=== PATIENT | male | born 1985 | race Caucasian/White ===

== ENCOUNTER 2017-09-27 10:21 | Emergency (ER) | payer OTHER ==
[~2017-09-27] VITALS: Ht 172.7 cm; Wt 84.1 kg
[2017-09-27] MEDS ORDERED: IBUPROFEN 800 MG TABLET PO ONE (12:15)
[2017-09-27 12:32] VITALS: BP 147/78
== END 2017-09-27 12:38 | disposition home or self-care (01) ==
LOC: EMS 10:24 → EDBD 10:24 → EMS 12:38
DX: S29.012A Strain of muscle and tendon of back wall of thorax, initial encounter (principal); F12.90 Cannabis use, unspecified, uncomplicated; X50.0XXA Overexertion from strenuous movement or load, initial encounter; Y93.89 Activity, other specified; Y92.89 Other specified places as the place of occurrence of the external cause; Y99.8 Other external cause status
CPT/HCPCS: 99282

== ENCOUNTER 2017-10-07 08:42 | Emergency (ER) | payer OTHER ==
[~2017-10-07] VITALS: Ht 172.7 cm; Wt 81.8 kg
[2017-10-07] MEDS ORDERED: BENZONATATE 100 MG CAPSULE PO ONE (09:45)
[2017-10-07] MEDS ORDERED: BENZOCAINE/MENTHOL LOZENGE PO ONE (09:45)
[2017-10-07] MEDS ORDERED: IBUPROFEN 600 MG TABLET PO ONE (09:45)
[2017-10-07 10:20] VITALS: BP 103/78
== END 2017-10-07 11:32 | disposition home or self-care (01) ==
LOC: MERGE 08:43 → EMS 08:43
DX: J06.9 Acute upper respiratory infection, unspecified (principal); J02.9 Acute pharyngitis, unspecified; R51 Headache; R11.0 Nausea; F17.210 Nicotine dependence, cigarettes, uncomplicated; F12.90 Cannabis use, unspecified, uncomplicated
CPT/HCPCS: 87430; 99284

== ENCOUNTER 2017-10-23 09:13 | Emergency (ER) | payer OTHER ==
[~2017-10-23] VITALS: Ht 172.7 cm; Wt 88.6 kg
[2017-10-23 09:35] VITALS: BP 119/99
== END 2017-10-23 10:21 | disposition home or self-care (01) ==
LOC: EMS 09:14
DX: H10.9 Unspecified conjunctivitis (principal); R05 Cough; F12.10 Cannabis abuse, uncomplicated; F17.210 Nicotine dependence, cigarettes, uncomplicated; F43.10 Post-traumatic stress disorder, unspecified
CPT/HCPCS: 99283